=== PATIENT | female | born 1985 | race African-American/Black ===

== ENCOUNTER 2019-07-11 08:08 | Emergency (ER) | payer OTHER ==
[2019-07-11 08:49] LABS: Absolute Lymphocytes (CBC) 1.4 K/uL (0.7-4.9); Basophils % 0.4 % (0-1.3); Hematocrit 43.9 % (36.0-45.0); Lymphocytes % 9.5 % (15.3-44.8); MPV 7.6 fL (7.6-11.3); RBC Red Blood Cell Count 4.66 M/uL (3.86-4.86)
[2019-07-11 08:57] LABS: Protime INR 1.13
[2019-07-11 09:14] LABS: ALT/SGPT 18 U/L (12-78); AST/SGOT 14 U/L (15-37); Albumin 3.9 g/dL (3.4-5.0); Alkaline Phosphatase 65 U/L (45-117); BUN Blood Urea Nitrogen 10 mg/dL (7-18); Bicarbonate 25 mmol/L (21-32); Bilirubin Direct 0.1 mg/dL (0-0.2); Bilirubin Total 0.3 mg/dL (0.2-1.0); Glucose Level 102 mg/dL (74-106); Magnesium 2.2 mg/dL (1.8-2.4); NT PRO-BNP 66 pg/mL (<125); Potassium 3.5 mmol/L (3.5-5.1); Protein, Total 8.9 g/dL (6.4-8.2); Sodium Level 139 mmol/L (136-145); Thyroid Stimulating Hormone 0.614 uIU/mL (0.360-3.740); Troponin (Emerg Dept Use Only) < 0.02 ng/mL (0.0-0.045)
--- NOTE | 2019-07-11 09:21 | RAD REPORT ---
EXAM DESCRIPTION: RAD - Chest Single View - 07/11/2019 9:06 am CLINICAL HISTORY: CHEST PAIN Chest pain. COMPARISON: No comparisons FINDINGS: Portable technique limits examination quality. The lungs are grossly clear. The heart is normal in size. No displaced fractures. IMPRESSION: No acute intrathoracic process suspected.
[2019-07-11] MEDS ORDERED: NA CHLORIDE 0.9% 1,000 ML ONE (09:49)
--- NOTE | 2019-07-11 10:35 | RAD REPORT ---
EXAM DESCRIPTION: CT - Chest For Pe Angio - 07/11/2019 10:19 am CLINICAL HISTORY: Chest pain. Chest pain;SOB COMPARISON: No comparisons TECHNIQUE: CT angiogram of the pulmonary arteries was performed with MIP. All CT scans are performed using dose optimization technique as appropriate and may include automated exposure control or mA/KV adjustment according to patient size. FINDINGS: No evidence of pulmonary thromboembolism. No acute aortic finding demonstrated. The lungs are clear. No significant pericardial or pleural fluid. No concerning bony finding. IMPRESSION: No evidence of pulmonary thromboembolism. No acute lung findings.
[2019-07-11 10:54] LABS: Urine Blood NEGATIVE (NEG); Urine Glucose NEGATIVE (NEG); Urine Protein NEGATIVE (NEG); Urine Specific Gravity 1.015 (1.005-1.030)
[2019-07-11] MEDS ORDERED: KETOROLAC 30 MG/ML INJ ONE (10:55)
[2019-07-11 11:44] LABS: Barbiturates NEGATIVE (NEGATIVE); Benzodiazepines NEGATIVE (NEGATIVE); Cocaine NEGATIVE (NEGATIVE); METHAMPHETAM NEGATIVE (NEGATIVE); Methadone NEGATIVE (NEGATIVE); Opiates NEGATIVE (NEGATIVE); Phencyclidine NEGATIVE (NEGATIVE); THC Cannibis POSITIVE (NEGATIVE)
--- NOTE | 2019-07-11 12:01 | ER ---
Nurse's Notes [facility] Name: Chana Jarvis Age: 33 yrs Sex: Female : 1985 Arrival Date: 07/11/2019 Time: 08:09 Bed 13 Private MD: Diagnosis: Chest pain, unspecified Presentation: 07/10 08:11 Chief complaint: Patient states: mid-sternal chest pain radiating to back that began aa5 around 0300. Pt also reports SOB. Pt also reports palpitations. 08:11 Coronavirus screen: Patient denies a cough. Patient reports shortness of breath or aa5 difficulty breathing. Patient denies measured and/or subjective temperature greater than 100.4F prior to today's visit. Patient denies travel on a cruise ship or to a country the [facility] currently lists as an affected area. Patient denies contact with known and/or suspected case of COVID-19. Ebola Screen: Patient negative for fever greater than or equal to 101.5 degrees Fahrenheit, and additional compatible Ebola Virus Disease symptoms. Initial Sepsis Screen: Does the patient meet any 2 criteria? HR > 90 bpm. Does the patient have a suspected source of infection? No. Patient's initial sepsis screen is negative. Risk Assessment: Do you want to hurt yourself or someone else? Patient reports no desire to harm self or others. Onset of symptoms was July 11, 2019. 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 - Social history:: Smoking status: Patient denies any tobacco usage or history of. Screenin:52 Abuse screen: Denies threats or abuse. Nutritional screening: No deficits noted. tw2 Tuberculosis screening: No symptoms or risk factors identified. Fall Risk None identified. Assessment: 09:00 Reassessment: Patient appears in no apparent distress at this time. No changes from tw2 previously documented assessment. Patient and/or family updated on plan of care and expected duration. Pain level reassessed. Patient is alert, oriented x 3, equal unlabored respirations, skin warm/dry/pink. 09:00 Pain: Complains of pain in chest Pain does not radiate. Pain began suddenly, "this tw2 morning about 3 am it just woke me up". 09:00 General: Appears in no apparent distress. slender, well groomed, Behavior is calm, tw2 cooperative, appropriate for age. Neuro: Level of Consciousness is awake, alert, obeys commands, Oriented to person, place, time, situation. Cardiovascular: Denies chest pain, "its really like on the sides" Heart tones S1 S2 Patient's skin is warm and dry. Respiratory: Airway is patent Respiratory effort is even, unlabored, Respiratory pattern is regular, symmetrical, Breath sounds are clear bilaterally. GI: No signs and/or symptoms were reported involving the gastrointestinal system. : No signs and/or symptoms were reported regarding the genitourinary system. EENT: No signs and/or symptoms were reported regarding the EENT system. 09:57 Reassessment: Patient appears in no apparent distress at this time. No changes from tw2 previously documented assessment. Patient and/or family updated on plan of care and expected duration. Pain level reassessed. Patient is alert, oriented x 3, equal unlabored respirations, skin warm/dry/pink. 10:51 Reassessment: Patient appears in no apparent distress at this time. No changes from tw2 previously documented assessment. Patient and/or family updated on plan of care and expected duration. Pain level reassessed. Patient is alert, oriented x 3, equal unlabored respirations, skin warm/dry/pink. 11:34 Reassessment: Patient appears in no apparent distress at this time. Patient and/or tw2 family updated on plan of care and expected duration. Pain level reassessed. Patient is alert, oriented x 3, equal unlabored respirations, skin warm/dry/pink. Patient states feeling better. Patient states symptoms have improved. 12:17 Reassessment: Patient appears in no apparent distress at this time. No changes from tw2 previously documented assessment. Patient and/or family updated on plan of care and expected duration. Pain level reassessed. Patient is alert, oriented x 3, equal unlabored respirations, skin warm/dry/pink. Patient states feeling better. Patient states symptoms have improved. Vital Signs: 08:11 BP 102 / 67; Pulse 109; Resp 20 S; Temp 98.3(O); Pulse Ox 99% on R/A; Weight 53.52 kg aa5 (R); Height 5 ft. 6 in. (167.64 cm) (R); Pain 8/10; 09:00 BP 114 / 81; Pulse 101; Resp 20; Pulse Ox 100% on R/A; tw2 09:57 BP 132 / 74; Pulse 104; Resp 21; Pulse Ox 98% on R/A; tw2 10:52 BP 124 / 84; Pulse 99; Resp 18; Pulse Ox 96% on R/A; tw2 11:33 Pain 3/10; tw2 11:35 BP 117 / 86; Pulse 92; Resp 17; Pulse Ox 100% on R/A; Pain 3/10; tw2 12:18 BP 108 / 85; Pulse 92; Resp 19; Pulse Ox 100% on R/A; tw2 08:11 Body Mass Index 19.05 (53.52 kg, 167.64 cm) aa5 ED Course: 08:09 Patient arrived in ED. ag5 08:11 Arm band placed on. aa5 08:17 Dominik Villalta NP is PHCP. pm1 08:17 Lucien Rubalcava MD is Attending Physician. pm1 08:20 Triage completed. 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 Pulse ox on. NIBP on. aa5 08:35 Patient has correct armband on for positive identification. Placed in gown. Bed in low aa5 position. Call light in reach. Side rails up X 1. 08:38 EKG done, by ED staff, reviewed by Dominik Villalta NP. aa5 08:40 Initial lab(s) drawn, by hi, sent to lab. Inserted saline lock: 20 gauge in right aa5 antecubital area, using aseptic technique. Blood collected. 08:47 Radha Sanford, RN is Primary Nurse. tw2 09:07 XRAY Chest (1 view) In Process Unspecified. EDMS 09:57 Patient maintains SpO2 saturation greater than 95% on room air. tw2 10:20 CT Chest For PE Angio In Process Unspecified. EDMS 10:49 Urine collected: clean catch specimen, clear. dh3 12:18 No provider procedures requiring assistance completed. IV discontinued, intact, tw2 bleeding controlled, No redness/swelling at site. Pressure dressing applied. Administered Medications: 09:55 Drug: NS 0.9% 1000 ml Route: IV; Rate: 1000 ml; Site: right antecubital; tw2 11:33 Follow up: Response: No adverse reaction; IV Status: Completed infusion; IV Intake: tw2 1000ml 10:50 Drug: TORadol - Ketorolac 15 mg Route: IVP; Site: right antecubital; tw2 11:33 Follow up: Pain 3/10 Adult; Response: No adverse reaction; Pain is decreased tw2 Intake: 11:33 IV: 1000ml; Total: 1000ml. tw2 Outcome: 12:01 Discharge ordered by . pm1 12:19 Discharged to home ambulatory. tw2 12:19 Condition: stable 12:19 Discharge instructions given to patient, Instructed on discharge instructions, follow up and referral plans. medication usage, Demonstrated understanding of instructions, follow-up care, medications, Prescriptions given X 1. 12:19 Patient left the ED. tw2 Signatures: Dispatcher [employer] EDMS Eli Quintana, RN RN aa5 Dominik Villalta, RIAZ POWER GENERATING PLANT OPERATOR pm1 Radha Sanford RN RN tw2 Ivonne Martin 3 Summer Cantrell 5 Corrections: (The following items were deleted from the chart) 09:57 09:00 BP 132 / 74; Pulse 104bpm; Resp 21bpm; Pulse Ox 98% RA; tw2 tw2 10:54 09:00 Reassessment: Patient appears in no apparent distress at this time. No changes tw2 from previously documented assessment. Patient and/or family updated on plan of care and expected duration. Pain level reassessed. Patient is alert, oriented x 3, equal unlabored respirations, skin warm/dry/pink. tw2 10:54 10:51 Pain: Complains of pain in chest Pain does not radiate. Pain began suddenly, tw2 "this morning about 3 am it just woke me up" tw2
--- NOTE | 2019-07-11 12:02 | EDPHYS ---
Physician Documentation [facility] Name: Chana Jarvis Age: 33 yrs Sex: Female : 1985 Arrival Date: 07/11/2019 Time: 08:09 Bed 13 Private MD: ED Physician Lucien Rubalcava HPI: 07/10 09:06 This 33 yrs old Black Female presents to ER via Ambulatory with complaints of Chest pm1 Pain. 09:06 The patient or guardian reports chest pain that is located primarily in the mid-sternal pm1 area. The pain radiates to back. Associated signs and symptoms: Pertinent positives: palpitations, Pain with taking a deep breath, Pertinent negatives: abdominal pain, cough, diaphoresis, dizziness, headache, nausea, near syncope, shortness of breath, vomiting. The chest pain is described as sharp. Duration: The patient or guardian reports a single episode, that is still ongoing, and unchanged. Modifying factors: The symptoms are alleviated by shallow breathing. the symptoms are aggravated by deep breath. Severity of pain: in the emergency department the pain is actually worse. The patient has not experienced similar symptoms in the past. The patient has not recently seen a physician. Chest pain onset last night. 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 - Social history:: Smoking status: Patient denies any tobacco usage or history of. ROS: 09:06 Constitutional: Negative for fever, chills, and weight loss. pm1 09:06 Neck: Negative for injury, pain, and swelling. 09:06 Abdomen/GI: Negative for abdominal pain, nausea, vomiting, diarrhea, and constipation, Back: Negative for injury and pain, MS/Extremity: Negative for injury and deformity, Skin: Negative for injury, rash, and discoloration, Neuro: Negative for headache, weakness, numbness, tingling, and seizure. 09:06 Cardiovascular: Positive for chest pain, palpitations, Negative for edema, orthopnea. 09:06 Respiratory: Negative for cough, shortness of breath, wheezing. Exam: 09:06 Constitutional: This is a well developed, well nourished patient who is awake, alert, pm1 and in no acute distress. Head/Face: Normocephalic, atraumatic. Neck: Trachea midline, no thyromegaly or masses palpated, and no cervical lymphadenopathy. Supple, full range of motion without nuchal rigidity, or vertebral point tenderness. No Meningismus. Chest/axilla: Normal chest wall appearance and motion. Nontender with no deformity. No lesions are appreciated. 09:06 Abdomen/GI: Soft, non-tender, with normal bowel sounds. No distension or tympany. No guarding or rebound. No evidence of tenderness throughout. Back: No spinal tenderness. No costovertebral tenderness. Full range of motion. Skin: Warm, dry with normal turgor. Normal color with no rashes, no lesions, and no evidence of cellulitis. MS/ Extremity: Pulses equal, no cyanosis. Neurovascular intact. Full, normal range of motion. 09:06 Cardiovascular: Rate: tachycardic, actual rate is 109 bpm, Rhythm: regular, Pulses: no pulse deficits are appreciated, Heart sounds: normal, Edema: is not appreciated. 09:06 Respiratory: Exam negative for acute changes, respiratory distress, shortness of breath. 09:06 Neuro: Exam negative for acute changes, Orientation: is normal, Mentation: is normal, Motor: is normal, moves all fours. Vital Signs: 08:11 BP 102 / 67; Pulse 109; Resp 20 S; Temp 98.3(O); Pulse Ox 99% on R/A; Weight 53.52 kg aa5 (R); Height 5 ft. 6 in. (167.64 cm) (R); Pain 8/10; 09:00 BP 114 / 81; Pulse 101; Resp 20; Pulse Ox 100% on R/A; tw2 09:57 BP 132 / 74; Pulse 104; Resp 21; Pulse Ox 98% on R/A; tw2 10:52 BP 124 / 84; Pulse 99; Resp 18; Pulse Ox 96% on R/A; tw2 11:33 Pain 3/10; tw2 11:35 BP 117 / 86; Pulse 92; Resp 17; Pulse Ox 100% on R/A; Pain 3/10; tw2 12:18 BP 108 / 85; Pulse 92; Resp 19; Pulse Ox 100% on R/A; tw2 08:11 Body Mass Index 19.05 (53.52 kg, 167.64 cm) aa5 MDM: 08:26 Patient medically screened. nasreen 11:50 Data reviewed: vital signs. Data interpreted: Pulse oximetry: on room air is 100 %. pm1 Interpretation: normal. 12:00 Counseling: I had a detailed discussion with the patient and/or guardian regarding: the pm1 historical points, exam findings, and any diagnostic results supporting the discharge/admit diagnosis, lab results, radiology results, the need for outpatient follow up, to return to the emergency department if symptoms worsen or persist or if there are any questions or concerns that arise at home. 07/10 08:32 Order name: Basic Metabolic Panel; Complete Time: 09:27 pm07/10 08:32 Order name: CBC with Diff; Complete Time: 09:27 pm07/10 08:32 Order name: LFT's; Complete Time: 09:27 pm07/10 08:32 Order name: Magnesium; Complete Time: 09:27 pm07/10 08:32 Order name: NT PRO-BNP; Complete Time: 09:27 pm07/10 08:32 Order name: PT-INR; Complete Time: 09:27 pm07/10 08:32 Order name: Troponin (emerg Dept Use Only); Complete Time: 09:27 pm07/10 08:32 Order name: XRAY Chest (1 view); Complete Time: 09:27 pm07/10 08:32 Order name: TSH; Complete Time: 09:27 pm07/10 08:32 Order name: D-Dimer; Complete Time: 09:27 pm07/10 08:32 Order name: UDS; Complete Time: 12:05 pm07/10 09:13 Order name: CT Chest For PE Angio; Complete Time: 10:42 dh3 07/10 10:49 Order name: Urine Dipstick--Ancillary (enter results); Complete Time: 10:58 em1 07/10 10:49 Order name: Urine --Ancillary (enter results); Complete Time: 10:58 em1 07/10 08:32 Order name: EKG; Complete Time: 08:33 pm1 05/11 08:32 Order name: Cardiac monitoring; Complete Time: 08:43 pm1 07/10 08:32 Order name: EKG - Nurse/Tech; Complete Time: 08:43 pm1 07/10 08:32 Order name: IV Saline Lock; Complete Time: 08:44 pm1 07/10 08:32 Order name: Labs collected and sent; Complete Time: 08:44 pm1 07/10 08:32 Order name: O2 Per Protocol; Complete Time: 08:44 pm1 07/10 08:32 Order name: O2 Sat Monitoring; Complete Time: 08:44 pm1 07/10 08:32 Order name: Urine Dipstick-Ancillary (obtain specimen); Complete Time: 10:48 pm1 07/10 08:32 Order name: Urine Test (obtain specimen); Complete Time: 10:48 pm1 Administered Medications: 09:55 Drug: NS 0.9% 1000 ml Route: IV; Rate: 1000 ml; Site: right antecubital; tw2 11:33 Follow up: Response: No adverse reaction; IV Status: Completed infusion; IV Intake: tw2 1000ml 10:50 Drug: TORadol - Ketorolac 15 mg Route: IVP; Site: right antecubital; tw2 11:33 Follow up: Pain 310 Adult; Response: No adverse reaction; Pain is decreased tw2 Disposition: 20:24 Co-signature as Attending Physician, Lucien Rubalcava MD I agree with the assessment and nasreen plan of care. Disposition: 07/11/19 12:01 Discharged to Home. Impression: Chest pain, unspecified. - Condition is Stable. - Discharge Instructions: Nonspecific Chest Pain. - Prescriptions for Naprosyn 500 mg Oral Tablet - take 1 tablet by ORAL route 2 times per day As needed take with food; 30 tablet. - Medication Reconciliation Form, Thank You Letter, Antibiotic Education, Prescription Opioid Use, Work release form form. - Follow up: Emergency Department; When: As needed; Reason: Worsening of condition. Follow up: Private Physician; When: 2 - 3 days; Reason: Recheck today's complaints, Continuance of care, Re-evaluation by your physician. - Problem is new. - Symptoms have improved. Signatures: Dispatcher [employer] Lucien Campos MD MD cha Calderon, Audri, RN RN aa5 Dominik Villalta NP SHIPPING AND RECEIVING OPERATOR pm1 Sanford, Radha, RN RN tw2 Corrections: (The following items were deleted from the chart) 12:19 12:01 07/11/2019 12:01 Discharged to Home. Impression: Chest pain, unspecified. tw2 Condition is Stable. Forms are Work release form, Medication Reconciliation Form, Thank You Letter, Antibiotic Education, Prescription Opioid Use. Follow up: Emergency Department; When: As needed; Reason: Worsening of condition. Follow up: Private Physician; When: 2 - 3 days; Reason: Recheck today's complaints, Continuance of care, Re-evaluation by your physician. Problem is new. Symptoms have improved. pm1
[2019-07-11 13:04] VITALS: TEMP 98.3
[2019-07-11 13:21] VITALS: O2SAT 100
[2019-07-11 13:23] VITALS: BP 108/85
--- NOTE | 2019-07-11 18:45 | EKG ---
Test Date: 2019-07-11 Test Time: 08:44:36 Vending Supervisor: MERVAT MEASUREMENT RESULTS: Intervals: Rate: 99 AK: 134 QRSD: 70 QT: 358 QTc: 459 [place]: P: 74 AK: 134 QRS: 61 T: 58 INTERPRETIVE STATEMENTS: Normal sinus rhythm Normal ECG No previous ECG available for comparison Electronically Signed On 07-11-19 18:43:56 CDT by Geoffrey Hauser
== END 2019-07-11 12:19 | disposition home or self-care (01) ==
LOC: ER 08:08
DX: R07.9 Chest pain, unspecified (principal); Z86.73 Personal history of transient ischemic attack (TIA), and cerebral infarction without residual deficits
CPT/HCPCS: 96361; 93005; 85025; 80048; 36415; 83735; 81025; 85610; 85379; 80076; 80307 ×8; 84443; 81003; 84484; 83880; 71275; 71045; 96374; 99285; Q9967; J7030

== ENCOUNTER 2019-08-08 08:13 | Emergency (ER) | payer OTHER ==
[2019-08-08 08:54] LABS: Absolute Lymphocytes (CBC) 1.3 K/uL (0.7-4.9); Basophils % 1.1 % (0-1.3); Hematocrit 38.5 % (36.0-45.0); Lymphocytes % 24.2 % (15.3-44.8); RBC Red Blood Cell Count 4.17 M/uL (3.86-4.86)
[2019-08-08 09:19] LABS: BUN Blood Urea Nitrogen 13 mg/dL (7-18); Bicarbonate 25 mmol/L (21-32); Glucose Level 94 mg/dL (74-106); Potassium 3.9 mmol/L (3.5-5.1); Sodium Level 140 mmol/L (136-145); Thyroid Stimulating Hormone 0.361 uIU/mL (0.360-3.740); Troponin (Emerg Dept Use Only) < 0.02 ng/mL (0.0-0.045)
[2019-08-08 09:52] LABS: Urine Blood NEGATIVE (NEG); Urine Glucose NEGATIVE (NEG); Urine Protein NEGATIVE (NEG); Urine Specific Gravity 1.025 (1.005-1.030)
--- NOTE | 2019-08-08 10:15 | RAD REPORT ---
EXAM DESCRIPTION: CT - Chest For Pe Angio - 08/08/2019 9:58 am CLINICAL HISTORY: Chest pain. Palpitations;SOB COMPARISON: Chest For Pe Angio dated 07/11/2019 TECHNIQUE: CT angiogram of the pulmonary arteries was performed with MIP. All CT scans are performed using dose optimization technique as appropriate and may include automated exposure control or mA/KV adjustment according to patient size. FINDINGS: No evidence of pulmonary thromboembolism. No acute aortic finding demonstrated. The lungs are clear. No significant pericardial or pleural fluid. No concerning bony finding. IMPRESSION: No evidence of pulmonary thromboembolism. No acute lung findings.
[2019-08-08] MEDS ORDERED: NA CHLORIDE 0.9% 1,000 ML ONE (10:42)
--- NOTE | 2019-08-08 11:07 | EDPHYS ---
Physician Documentation [facility] Name: Chana Jarvis Age: 33 yrs Sex: Female : 1985 Arrival Date: 08/08/2019 Time: 08:16 Bed 18 Private MD: ED Physician Jeff Brantley HPI: 08/08 07:21 This 33 yrs old Black Female presents to ER via Ambulatory with complaints of Chest kdr Pain. 07:21 The patient or guardian reports chest pain that is located primarily in the substernal kdr area, anterior chest wall, bilaterally. The pain does not radiate. Associated signs and symptoms: Pertinent positives: dizziness, lightheadedness, nausea, palpitations, shortness of breath, Pertinent negatives: diaphoresis, headache, lower extremity pain, lower extremity swelling, near syncope. The chest pain is described as aching, burning. Duration: The patient or guardian reports a single episode, that is still ongoing. Modifying factors: The symptoms are alleviated by nothing. the symptoms are aggravated by nothing. Severity of pain: At its worst the pain was mild moderate just prior to arrival, in the emergency department the pain is unchanged. The patient has not experienced similar symptoms in the past. The patient has been recently seen by a physician: The patient has been recently seen at the [facility] Emergency Department, this week, for similar complaints. 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 - Social history:: Smoking status: Patient denies any tobacco usage or history of. ROS: 08/08 07:21 Constitutional: Negative for fever, chills, and weight loss, Eyes: Negative for injury, kdr pain, redness, and discharge, ENT: Negative for injury, pain, and discharge, Neck: Negative for injury, pain, and swelling, Abdomen/GI: Negative for abdominal pain, nausea, vomiting, diarrhea, and constipation, Back: Negative for injury and pain, : Negative for injury, bleeding, discharge, and swelling, MS/Extremity: Negative for injury and deformity, Skin: Negative for injury, rash, and discoloration, Neuro: Negative for headache, weakness, numbness, tingling, and seizure activity. Psych: Negative for depression, anxiety, suicide ideation, homicidal ideation, and hallucinations, Allergy/Immunology: Negative for hives, rash, and allergies, Endocrine: Negative for neck swelling, polydipsia, polyuria, polyphagia, and marked weight changes, Hematologic/Lymphatic: Negative for swollen nodes, abnormal bleeding, and unusual bruising. Cardiovascular: Positive for chest pain, palpitations, Negative for edema, orthopnea. Respiratory: Positive for shortness of breath, at rest. Exam: 07:21 Constitutional: This is a well developed, well nourished patient who is awake, alert, kdr and in no acute distress. Head/Face: Normocephalic, atraumatic. Eyes: Pupils equal round and reactive to light, extra-ocular motions intact. Lids and lashes normal. Conjunctiva and sclera are non-icteric and not injected. Cornea within normal limits. Periorbital areas with no swelling, redness, or edema. Neck: Trachea midline, no thyromegaly or masses palpated, and no cervical lymphadenopathy. Supple, full range of motion without nuchal rigidity, or vertebral point tenderness. No Meningismus. Chest/axilla: Normal chest wall appearance and motion. Nontender with no deformity. No lesions are appreciated. Cardiovascular: Regular rate and rhythm with a normal S1 and S2. No gallops, murmurs, or rubs. Normal PMI, no JVD. No pulse deficits. Respiratory: Lungs have equal breath sounds bilaterally, clear to auscultation and percussion. No rales, rhonchi or wheezes noted. No increased work of breathing, no retractions or nasal flaring. Abdomen/GI: Soft, non-tender, with normal bowel sounds. No distension or tympany. No guarding or rebound. No evidence of tenderness throughout. Back: No spinal tenderness. No costovertebral tenderness. Full range of motion. Skin: Warm, dry with normal turgor. Normal color with no rashes, no lesions, and no evidence of cellulitis. MS/ Extremity: Pulses equal, no cyanosis. Neurovascular intact. Full, normal range of motion. Neuro: Awake and alert, GCS 15, oriented to person, place, time, and situation. Cranial nerves II-XII grossly intact. Motor strength 5/5 in all extremities. Sensory grossly intact. Cerebellar exam normal. Normal gait. Psych: Awake, alert, with orientation to person, place and time. Behavior, mood, and affect are within normal limits. Vital Signs: 08/07 08:21 BP 128 / 78; Pulse 105; Resp 14 S; Temp 97.9(O); Pulse Ox 99% on R/A; Weight 54.43 kg aa5 (R); Height 5 ft. 5 in. (165.10 cm) (R); Pain 4/10; 10:05 BP 118 / 90; Pulse 84; Resp 15 S; Pulse Ox 98% on R/A; ca1 10:53 BP 119 / 84; Pulse 82; Resp 17 S; Pulse Ox 100% on R/A; ca1 08:21 Body Mass Index 19.97 (54.43 kg, 165.10 cm) aa5 MDM: 11:06 Patient medically screened. kdr 08/08 07:21 Data reviewed: vital signs, nurses notes, lab test result(s), radiologic studies. kdr 08/07 08:38 Order name: Basic Metabolic Panel; Complete Time: 09:26 kdr 08/07 08:38 Order name: CBC with Diff; Complete Time: 09:09 kdr 08/07 08:38 Order name: Troponin (emerg Dept Use Only); Complete Time: 09:26 kdr 08/07 08:38 Order name: DD; Complete Time: 09:09 kdr 08/07 08:38 Order name: TSH; Complete Time: 09:26 kdr 08/07 09:41 Order name: Urine Dipstick--Ancillary (enter results); Complete Time: 10:29 em1 08/07 08:38 Order name: EKG; Complete Time: 08:40 kdr 08/07 08:38 Order name: Cardiac monitoring; Complete Time: 09:06 kdr 08/07 08:38 Order name: EKG - Nurse/Tech; Complete Time: 09:06 kdr 08/07 08:38 Order name: IV Saline Lock; Complete Time: 09:06 kdr 08/07 08:38 Order name: Labs collected and sent; Complete Time: 09:07 kdr 08/07 09:09 Order name: CT Chest For PE Angio; Complete Time: 10:29 snw 08/07 09:41 Order name: Urine --Ancillary (enter results); Complete Time: 10:29 em1 08/07 08:38 Order name: O2 Per Protocol; Complete Time: : kdr 08/07 08:38 Order name: O2 Sat Monitoring; Complete Time: kdr Administered Medications: 08/07 10:36 Drug: NS 0.9% 1000 ml Route: IV; Rate: 1 bolus; Site: right antecubital; ca1 10:53 Follow up: Response: No adverse reaction; IV Status: Order to discontinue infusion; IV ca1 Intake: 400ml Disposition: 08/08/19 11:06 Discharged to Home. Impression: Palpitations, Chest pain, unspecified, Anxiety disorder, unspecified. - Condition is Stable. - Discharge Instructions: Palpitations, Nonspecific Chest Pain, [id number], Generalized Anxiety Disorder. - Medication Reconciliation Form, Thank You Letter, Work release form form. - Follow up: Private Physician; When: 2 - 3 days; Reason: If symptoms return, Further diagnostic work-up, Recheck today's complaints, Continuance of care, Re-evaluation by your physician. - Problem is new. - Symptoms are resolved. Signatures: Dispatcher [employer] EDMS Jeff Brantley MD MD kdr Abbey Nguyễn, TRAFFIC SIGNAL MECHANIC-C TRAFFIC SIGNAL MECHANIC-Csnw Eli Quintana RN RN aa5 Barbie Sanders RN RN ss Kandi Sanders RN RN ca1 Corrections: (The following items were deleted from the chart) 11:17 11:06 08/08/2019 11:06 Discharged to Home. Impression: Palpitations; Chest pain, ca1 unspecified; Anxiety disorder, unspecified. Condition is Stable. Forms are Medication Reconciliation Form, Thank You Letter, Antibiotic Education, Prescription Opioid Use. Follow up: Private Physician; When: 2 - 3 days; Reason: If symptoms return, Further diagnostic work-up, Recheck today's complaints, Continuance of care, Re-evaluation by your physician. Problem is new. Symptoms are resolved. kdr
--- NOTE | 2019-08-08 11:07 | ER ---
Nurse's Notes [facility] Name: Chana Jarvis Age: 33 yrs Sex: Female : 1985 Arrival Date: 08/08/2019 Time: 08:16 Bed 18 Private MD: Diagnosis: Palpitations;Chest pain, unspecified;Anxiety disorder, unspecified Presentation: 08/07 08:21 Chief complaint: Patient states: chest pressure and palpitations that began 2 days ago. aa5 Pt states "I was seen here for the same thing about 2 days ago but haven't been able to see a PCP". 08:21 Coronavirus screen: Proceed with normal triage. Patient denies a cough. Patient denies aa5 shortness of breath or difficulty breathing. Patient denies measured and/or subjective temperature greater than 100.4F prior to today's visit. Patient denies travel on a cruise ship or to a country the [facility] currently lists as an affected area. Patient denies contact with known and/or suspected case of COVID-19. Ebola Screen: Patient negative for fever greater than or equal to 101.5 degrees Fahrenheit, and additional compatible Ebola Virus Disease symptoms. Initial Sepsis Screen: Does the patient meet any 2 criteria? No. Patient's initial sepsis screen is negative. Does the patient have a suspected source of infection? No. Patient's initial sepsis screen is negative. Risk Assessment: Do you want to hurt yourself or someone else? Patient reports no desire to harm self or others. Onset of symptoms was August 2019. 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 - Social history:: Smoking status: Patient denies any tobacco usage or history of. Screenin:45 Abuse screen: Denies threats or abuse. Denies injuries from another. Nutritional ss screening: No deficits noted. Tuberculosis screening: Never had TB. Fall Risk None identified. Assessment: 08:45 General: Appears in no apparent distress. comfortable, Behavior is calm, cooperative. ss Pain: Pain does not radiate. Pain currently is 4 out of 10 on a pain scale. Quality of pain is described as pressure Pain began "weeks ago. Seems like it got worse when we all went back to work. It might be from the masks. I just can't explain it." Is intermittent. Neuro: Level of Consciousness is awake, alert, obeys commands, Oriented to person, place, time, situation. Cardiovascular: Capillary refill < 3 seconds is brisk in bilateral fingers. Cardiovascular: Reports palpitations. Respiratory: Airway is patent Respiratory effort is even, unlabored, Respiratory pattern is regular, symmetrical. Respiratory: Denies cough, shortness of breath pain with respiration, pain with cough, pain with movement. GI: Patient currently denies diarrhea, nausea, vomiting. EENT: Nares are clear Oral mucosa is moist. Derm: Skin is intact, is healthy with good turgor, Skin is dry, Skin is pink, warm \\T\\ dry. normal. 10:05 Reassessment: Patient appears in no apparent distress at this time. Patient and/or ca1 family updated on plan of care and expected duration. Pain level reassessed. Patient is alert, oriented x 3, equal unlabored respirations, skin warm/dry/pink. 10:53 Reassessment: Patient appears in no apparent distress at this time. Patient and/or ca1 family updated on plan of care and expected duration. Pain level reassessed. Patient is alert, oriented x 3, equal unlabored respirations, skin warm/dry/pink. Vital Signs: 08:21 BP 128 / 78; Pulse 105; Resp 14 S; Temp 97.9(O); Pulse Ox 99% on R/A; Weight 54.43 kg aa5 (R); Height 5 ft. 5 in. (165.10 cm) (R); Pain 4/10; 10:05 BP 118 / 90; Pulse 84; Resp 15 S; Pulse Ox 98% on R/A; ca1 10:53 BP 119 / 84; Pulse 82; Resp 17 S; Pulse Ox 100% on R/A; ca1 08:21 Body Mass Index 19.97 (54.43 kg, 165.10 cm) aa5 ED Course: 08:16 Patient arrived in ED. mr 08:21 Arm band placed on Patient placed in an exam room, on a stretcher. aa5 08:22 Patient has correct armband on for positive identification. Placed in gown. Bed in low aa5 position. Call light in reach. Side rails up X2. pig sticker on. Pulse ox on. NIBP on. 08:23 EKG done, by agriscience technology instructor. reviewed by Jeff Brantley MD. aa5 08:28 Jeff Brantley MD is Attending Physician. kdr 08:30 Triage completed. aa5 08:45 Inserted saline lock: 20 gauge in right antecubital area, using aseptic technique. ss Blood collected. Patient maintains SpO2 saturation greater than 95% on room air. 09:06 Barbie Sanders, FOX is Primary Nurse. ss 09:59 CT Chest For PE Angio In Process Unspecified. EDMS 10:32 Primary Nurse role handed off by Barbie Sanders RN ca1 10:32 Kandi Sanders, FOX is Primary Nurse. ca1 11:16 No provider procedures requiring assistance completed. IV discontinued, intact, ca1 bleeding controlled, No redness/swelling at site. Pressure dressing applied. Administered Medications: 10:36 Drug: NS 0.9% 1000 ml Route: IV; Rate: 1 bolus; Site: right antecubital; ca1 10:53 Follow up: Response: No adverse reaction; IV Status: Order to discontinue infusion; IV ca1 Intake: 400ml Intake: 10:53 IV: 400ml; Total: 400ml. ca1 Outcome: 11:06 Discharge ordered by . kdr 11:16 Discharged to home ambulatory. ca1 11:16 Condition: stable 11:16 Discharge instructions given to patient, Instructed on discharge instructions, follow up and referral plans. Demonstrated understanding of instructions, follow-up care. 11:17 Patient left the ED. ca1 Signatures: Dispatcher [employer] EDAZ Jeff Brantley MD MD kdr Rivera, Ani mr Quintana, Eli, RN RN aa5 Barbie Sanders RN RN ss Kandi Sanders RN RN ca1
[2019-08-08 11:24] VITALS: TEMP 97.9
[2019-08-08 11:27] VITALS: BP 119/84; O2SAT 100
== END 2019-08-08 11:17 | disposition home or self-care (01) ==
LOC: ER 08:13
DX: R00.2 Palpitations (principal); F41.9 Anxiety disorder, unspecified; Z86.73 Personal history of transient ischemic attack (TIA), and cerebral infarction without residual deficits
CPT/HCPCS: 93005; 85025; 80048; 36415; 81025; 85379; 84443; 81003; 84484; 71275; 99285; Q9967; J7030

== ENCOUNTER 2023-12-25 11:58 | Emergency (ER) | payer OTHER ==
--- OUTSIDE RECORDS SUMMARY | 2023-12-25 12:01 | XMS REPORT | Continuity of Care Document ---
Author Name Unknown Address [address] [place] [address] [place] [address] [facility] Address [address] [place] [address] [address] [place] [address] Care Team Providers Care Physical Ther Name Role Phone Yahaira Russ Attending Clinician Unavaila ble Payers Payer Name Policy Type Policy Number Effective Date Expirati on Date Source Encounters Start Date/Time End Date/Time Encounter Type Admission Type Attending Clinicians Care Facility Care Department Encounter ID Source 2023-02-27 00:00:00 2023-02-27 00:00:00 Outpatient Yahaira Russ [facility] [id number] [facility]
[2023-12-25] MEDS ORDERED: levoFLOXacin 250 MG TAB ONE (13:16)
[2023-12-25] MEDS ORDERED: predniSONE 20 MG TAB ONE (13:16)
[2023-12-25] MEDS ORDERED: SMZ./TMP. 800/160 MG TABLET ONE (13:16)
[2023-12-25] MEDS ORDERED: HYDROCODONE/APAP 10/325 TAB ONE (13:17)
[2023-12-25] MEDS ORDERED: KETOROLAC 30 MG/ML INJ ONE (13:17)
--- NOTE | 2023-12-25 13:18 | ER ---
Nurse's Notes [facility] Name: Chana Jarvis Age: 38 yrs Sex: Female : 1985 Arrival Date: 12/25/2023 Time: 11:58 Bed 12 Private MD: Diagnosis: Systemic lupus erythematosus, unspecified;Acute actinic otitis externa, right ear Presentation: 12/24 12:05 Chief complaint: Patient states: right ear pain x2 days, states she can't sleep at kc6 night. Coronavirus screen: At this time, the client does not indicate any symptoms associated with coronavirus-19. Ebola Screen: No symptoms or risks identified at this time. Initial Sepsis Screen: Does the patient meet any 2 criteria? HR > 90 bpm. Does the patient have a suspected source of infection? No. Patient's initial sepsis screen is negative. Risk Assessment: Do you want to hurt yourself or someone else? Patient reports no desire to harm self or others. Onset of symptoms was December 25, 2023. 12:05 Method Of Arrival: Ambulatory kc6 12:05 Acuity: TITO 4 kc6 Triage Assessment: 12:08 Headache History: Denies prior headaches. kc6 12:08 General: Appears in no apparent distress. uncomfortable, well groomed, well developed, kc6 Behavior is calm, cooperative, appropriate for age. Pain: Complains of pain in right ear Pain does not radiate. Pain currently is 10 out of 10 on a pain scale. Pain began 2-3 days ago. Is continuous, Also complains of sleeplessness. Neuro: Level of Consciousness is awake, alert, obeys commands, Oriented to person, place, time, situation, Appropriate for age. Cardiovascular: Capillary refill < 3 seconds. Respiratory: Airway is patent Trachea midline Respiratory effort is even, unlabored, Respiratory pattern is regular, symmetrical. GI: No signs and/or symptoms were reported involving the gastrointestinal system. : No signs and/or symptoms were reported regarding the genitourinary system. Derm: No signs and/or symptoms reported regarding the dermatologic system. Skin is intact, is healthy with good turgor, Skin is pink, warm \T\ dry. Musculoskeletal: No signs and/or symptoms reported regarding the musculoskeletal system. Circulation, motion, and sensation intact. Capillary refill < 3 seconds, Range of motion: intact in all extremities. 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 - Infectious Disease History:: Denies. - Social history:: Smoking status: Patient denies any tobacco usage or history of. Screenin:08 [facility] ED Fall Risk Assessment (Adult) History of falling in the last 3 months, kc6 including since admission No falls in past 3 months (0 pts) Confusion or Disorientation No (0 pts) Intoxicated or Sedated No (0 pts) Impaired Gait No (0 pts) Mobility Assist Device Used No (0 pt) Altered Elimination No (0 pt) Score/Fall Risk Level 0 - 2 = Low Risk Oriented to surroundings. Abuse screen: Denies threats or abuse. Denies injuries from another. Nutritional screening: No deficits noted. Tuberculosis screening: No symptoms or risk factors identified. Assessment: 12:54 Reassessment: please see triage. kc6 13:20 General: Appears uncomfortable, Behavior is calm, cooperative. Pain: Complains of pain aa5 in right ear Pain currently is 10 out of 10 on a pain scale. Neuro: Level of Consciousness is awake, alert, obeys commands, Oriented to person, place, time, situation. Cardiovascular: Patient's skin is warm and dry. Respiratory: Airway is patent Respiratory effort is even, unlabored, Respiratory pattern is regular, symmetrical. GI: No signs and/or symptoms were reported involving the gastrointestinal system. : No signs and/or symptoms were reported regarding the genitourinary system. EENT: Reports pain in right ear canal. Derm: Skin is dry, Skin is normal, Skin temperature is warm. Musculoskeletal: Range of motion: intact in all extremities. Vital Signs: 12:05 BP 114 / 79; Pulse 108; Resp 18 S; Temp 99.1(O); Pulse Ox 99% on R/A; Weight 53.07 kg kc6 (R); Height 5 ft. 6 in. (R); Pain 10/10; 12:05 Body Mass Index 18.88 (53.07 kg, 167.64 cm) kc6 12:05 Pain Scale: Adult kc6 Nancy Coma Score: 12:53 Eye Response: spontaneous(4). Motor Response: obeys commands(6). Verbal Response: nasreen oriented(5). Total: 15. ED Course: 12:01 Patient arrived in ED. ra3 12:08 Triage completed. kc6 12:08 Arm band placed on. kc6 12:08 Patient maintains SpO2 saturation greater than 95% on room air. kc6 12:13 Lucien Rubalcava MD is Attending Physician. nasreen 12:54 Patient has correct armband on for positive identification. Bed in low position. Call kc6 light in reach. Side rails up X 1. Adult w/ patient. Pulse ox on. NIBP on. Door closed. Noise minimized. Lights dimmed. Pillow given. 13:08 CT Head Brain wo Cont In Process Unspecified. EDMS 13:17 My Bentley MD is Referral Physician. [facility] 13:24 Eli Quintana, FOX is Primary Nurse. aa5 13:30 No provider procedures requiring assistance completed. Patient did not have IV access aa5 during this emergency room visit. Administered Medications: 13:22 Drug: Ketorolac IM 60 mg IM once Route: IM; Site: right gluteus; aa5 13:35 Follow up: Response: No adverse reaction aa5 13:24 Drug: [place] PO 10 mg-325 mg 1 tabs PO once Route: PO; aa5 13:35 Follow up: Response: No adverse reaction aa5 13:24 Drug: predniSONE PO 60 mg PO once Route: PO; aa5 13:35 Follow up: Response: No adverse reaction aa5 13:24 Drug: Trimethoprim-Sulfamethoxazole PO (160 mg-800 mg (DS) 1 tablet PO once Route: PO; aa5 13:35 Follow up: Response: No adverse reaction aa5 13:24 Drug: LevOfloxacin PO 500 mg PO once Route: PO; aa5 13:35 Follow up: Response: No adverse reaction aa5 Medication: 13:35 VIS not applicable for this client. aa5 Outcome: 13:17 Discharge ordered by . nasreen 13:35 Patient left the ED. aa5 13:35 Discharged to home ambulatory, with significant other, aa5 13:35 Condition: stable 13:35 Discharge instructions given to patient, Instructed on discharge instructions, follow up and referral plans. medication usage, Demonstrated understanding of instructions, follow-up care, medications, Prescriptions given X 4, Signatures: Dispatcher [employer] EDLucien Love MD MD cha Calderon, Audri RN RN aa5 Analilia Robbins RN RN kc6 Tigist Goncalves ra3 Corrections: (The following items were deleted from the chart) 14:19 13:35 Patient left the ED. aris aa5
--- NOTE | 2023-12-25 13:18 | RAD REPORT ---
EXAM: CT brain without contrast HISTORY: Headache COMPARISON: None TECHNIQUE: Multiple contiguous axial images were obtained and a CT of the brain without contrast.. Sagittal and coronal reconstruction performed. Automated exposure control, adjustment of the mA and/or kV according to patient size, and/or iterative reconstruction. Unless otherwise specified, incidental f indings do not require dedicated imaging follow-u FINDINGS: An intracranial bleed is not seen Ventricles are normal caliber No extra-axial fluid collection noted 3.2 cm low-density area left frontal lobe. No fluid within the visualized sinuses or mastoids noted. IMPRESSION: 3.2 cm low-density area left frontal lobe probably an old infarct. No acute intracranial abnormality noted. If the patient's symptoms persist MRI of the brain would be recommended.
--- NOTE | 2023-12-25 13:18 | EDPHYS ---
Physician Documentation [facility] Name: Chana Jarvis Age: 38 yrs Sex: Female : 1985 Arrival Date: 12/25/2023 Time: 11:58 Bed 12 Private MD: ED Physician Lucien Rubalcava HPI: 12/24 12:51 This 38 yrs old Black Female presents to ER via Ambulatory with complaints of Headache, nasreen Ear Pain - right. 12:51 The patient complains of pain to the right ear. The patient describes the headache as nasreen aching. Onset: The symptoms/episode began/occurred 1 week(s) ago. 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 - Infectious Disease History:: Denies. - Social history:: Smoking status: Patient denies any tobacco usage or history of. ROS: 12:51 Constitutional: Negative for fever, chills, and weight loss, Eyes: Negative for injury, nasreen pain, redness, and discharge, Neck: Negative for injury, pain, and swelling, Cardiovascular: Negative for chest pain, palpitations, and edema, Respiratory: Negative for shortness of breath, cough, wheezing, and pleuritic chest pain, Abdomen/GI: Negative for abdominal pain, nausea, vomiting, diarrhea, and constipation, Back: Negative for injury and pain, : Negative for injury, bleeding, discharge, and swelling, MS/Extremity: Negative for injury and deformity, Skin: Negative for injury, rash, and discoloration, Neuro: Negative for headache, weakness, numbness, tingling, and seizure, Psych: Negative for depression, anxiety, suicide ideation, homicidal ideation, and hallucinations, Allergy/Immunology: Negative for hives, rash, and allergies, Endocrine: Negative for neck swelling, polydipsia, polyuria, polyphagia, and marked weight changes, Hematologic/Lymphatic: Negative for swollen nodes, abnormal bleeding, and unusual bruising, 12:51 ENT: Positive for ear pain, Exam: 12:51 Constitutional: This is a well developed, well nourished patient who is awake, alert, nasreen and in no acute distress. Head/Face: Normocephalic, atraumatic. Eyes: Pupils equal round and reactive to light, extra-ocular motions intact. Lids and lashes normal. Conjunctiva and sclera are non-icteric and not injected. Cornea within normal limits. Periorbital areas with no swelling, redness, or edema. Neck: Trachea midline, no thyromegaly or masses palpated, and no cervical lymphadenopathy. Supple, full range of motion without nuchal rigidity, or vertebral point tenderness. No Meningismus. Chest/axilla: Normal chest wall appearance and motion. Nontender with no deformity. No lesions are appreciated. Cardiovascular: Regular rate and rhythm with a normal S1 and S2. No gallops, murmurs, or rubs. Normal PMI, no JVD. No pulse deficits. Respiratory: Lungs have equal breath sounds bilaterally, clear to auscultation and percussion. No rales, rhonchi or wheezes noted. No increased work of breathing, no retractions or nasal flaring. Abdomen/GI: Soft, non-tender, with normal bowel sounds. No distension or tympany. No guarding or rebound. No evidence of tenderness throughout. Back: No spinal tenderness. No costovertebral tenderness. Full range of motion. Skin: Warm, dry with normal turgor. Normal color with no rashes, no lesions, and no evidence of cellulitis. MS/ Extremity: Pulses equal, no cyanosis. Neurovascular intact. Full, normal range of motion. Neuro: Awake and alert, GCS 15, oriented to person, place, time, and situation. Cranial nerves II-XII grossly intact. Motor strength 5/5 in all extremities. Sensory grossly intact. Cerebellar exam normal. Normal gait. Psych: Awake, alert, with orientation to person, place and time. Behavior, mood, and affect are within normal limits. 12:51 ENT: External ear(s): cellulitis, that is minimal, of the pinna of right ear and right ear canal, Ear canal(s): erythema, swelling, that is minimal, Vital Signs: 12:05 BP 114 / 79; Pulse 108; Resp 18 S; Temp 99.1(O); Pulse Ox 99% on R/A; Weight 53.07 kg kc6 (R); Height 5 ft. 6 in. (R); Pain 12/09; 12:05 Body Mass Index 18.88 (53.07 kg, 167.64 cm) kc6 12:05 Pain Scale: Adult kc6 Twining Coma Score: 12:53 Eye Response: spontaneous(4). Motor Response: obeys commands(6). Verbal Response: nasreen oriented(5). Total: 15. MDM: 12:13 Medical Screening Exam initiated [facility] 12:53 Differential diagnosis: otitis. Data reviewed: vital signs, nurses notes, radiologic nasreen studies, CT scan. Consideration of Admission/Observation Escalation of care including admission/observation considered. I considered the following discharge prescriptions or medication management in the emergency department Medications were administered in the Emergency Department. See MAR. Test considered but Not performed: Labs: no cbc, comp. Care significantly affected by the following chronic conditions: cva, lupus. Counseling: I had a detailed discussion with the patient and/or guardian regarding the historical points, exam findings, and any diagnostic results supporting the discharge/admit diagnosis, radiology results, the need for outpatient follow up, for definitive care, an ENT specialist, a family practitioner. 12/24 12:51 Order name: CT Head Brain wo Cont; Complete Time: 13:22 nasreen Administered Medications: 13:22 Drug: Ketorolac IM 60 mg IM once Route: IM; Site: right gluteus; aa5 13:35 Follow up: Response: No adverse reaction aa5 13:24 Drug: [place] PO 10 mg-325 mg 1 tabs PO once Route: PO; aa5 13:35 Follow up: Response: No adverse reaction aa5 13:24 Drug: predniSONE PO 60 mg PO once Route: PO; aa5 13:35 Follow up: Response: No adverse reaction aa5 13:24 Drug: Trimethoprim-Sulfamethoxazole PO (160 mg-800 mg (DS) 1 tablet PO once Route: PO; aa5 13:35 Follow up: Response: No adverse reaction aa5 13:24 Drug: LevOfloxacin PO 500 mg PO once Route: PO; aa5 13:35 Follow up: Response: No adverse reaction aa5 Disposition Summary: 12/25/23 13:17 Discharge Ordered Notes: Location: Home nasreen Problem: new nasreen Symptoms: have improved nasreen Condition: Stable nasreen Diagnosis - Systemic lupus erythematosus, unspecified nasreen - Acute actinic otitis externa, right ear nasreen Followup: nasreen - With: Private Physician - When: 2 - 3 days - Reason: Recheck today's complaints, Continuance of care, Re-evaluation by your physician Followup: nasreen - With: My Bentley MD - When: 2 - 3 days - Reason: Recheck today's complaints, Re-evaluation by your physician Discharge Instructions: - Discharge Summary Sheet [facility] - Ear Drops, Adult [facility] - Otitis Externa [facility] - Systemic Lupus Erythematosus, Adult [facility] - Otitis Externa, [id number] [facility] Forms: - Medication Reconciliation Form [facility] - Antibiotic Education [facility] - Prescription Opioid Use [facility] - Patient Portal Instructions [facility] - Leadership Thank You Letter [facility] Prescriptions: - diclofenac sodium 25 mg Oral tablet, delayed release (enteric coated) - take 1 tablet ORAL route every 8 hours; 30 tablet; Refills: 0, Product [facility] Selection Permitted - Bactrim DS 800-160 mg Oral Tablet - take 1 tablet ORAL route every 12 hours for 10 days; 20 tablet; Refills: 0, [facility] Product Selection Permitted - Prednisone 20 mg Oral Tablet - take 2 tablets ORAL route once daily for 5 days; 10 tablet; Refills: 0, Product [facility] Selection Permitted - levofloxacin 500 mg Oral tablet - take 1 tablet ORAL route once daily for 8-10 days; 9 tablet; Refills: 0, [facility] Product Selection Permitted Signatures: Dispatcher [employer] Lucien Campos MD MD cha Calderon, Audri, RN RN aa5 Analilia Robbins RN RN kc6
[2023-12-26 00:24] VITALS: BP 114/79; TEMP 99.1; O2SAT 99
== END 2023-12-25 13:35 | disposition home or self-care (01) ==
LOC: ER 11:58
DX: H60.511 Acute actinic otitis externa, right ear (principal); R51.9 Headache, unspecified; M32.9 Systemic lupus erythematosus, unspecified
CPT/HCPCS: 70450; 96372; 99284; J7512